=== PATIENT | male | born 1960 | race Caucasian/White ===

== ENCOUNTER 2021-03-12 15:49 | Emergency (ER) | payer MEDICAID, OTHER ==
[~2021-03-12] VITALS: Ht 165.1 cm; Wt 68.2 kg
[~2021-03-12 15:49] MED LIST: METF-960 PO
[2021-03-12] MEDS ORDERED: LIDOCAINE 1% 10 ML VIAL PERC ONE (17:00)
[2021-03-12] MEDS ORDERED: BUPIVACAINE HCL/PF 0.25% 10 ML VIAL PERC ONE (17:00)
[2021-03-12] MEDS ORDERED: PERTUSS(ACELL),DIPH,TET VAC/PF 0.5 ML SYRINGE IM. ONE (17:00)
[2021-03-12] MEDS ORDERED: BACITRACIN 0.9 GM PACKET OINTMENT TP ONE (17:45)
[2021-03-12 18:07] VITALS: BP 130/80
== END 2021-03-12 18:20 | disposition home or self-care (01) ==
LOC: EMS 15:49
DX: S61.211A Laceration without foreign body of left index finger without damage to nail, initial encounter (principal); E11.9 Type 2 diabetes mellitus without complications; Z79.84 Long term (current) use of oral hypoglycemic drugs; W26.8XXA Contact with other sharp object(s), not elsewhere classified, initial encounter; Y93.89 Activity, other specified; Y92.89 Other specified places as the place of occurrence of the external cause; Y99.0 Civilian activity done for income or pay
CPT/HCPCS: 12002; 82962; 90471; 90715; 99283; J3490 ×2